=== PATIENT | female | born 1955 | race Caucasian/White ===

== ENCOUNTER → 2021-03-05 | Outpatient (CLI) | payer OTHER ==
[~2021-03-05] MED LIST: MAXALT10 MG PO; PERCOCET 325 MG1 TA2 PO; SYNTHROID0.112 MG PO
== END | disposition home or self-care (01) ==
LOC: COVID19 15:51
PROVIDERS: ATTEND Student in an Organized Health Care Education/Training Program
DX: Z11.52 Encounter for screening for COVID-19 (principal)